=== PATIENT | male | born 2000 | race Caucasian/White ===

== ENCOUNTER 2025-03-09 21:39 | Emergency (ER) | payer MEDICAID ==
[~2025-03-09] VITALS: Ht 175.3 cm; Wt 75.0 kg
[2025-03-09 21:43] VITALS: O2SAT 98
[2025-03-09] MEDS: ACETAMINOPHEN 325MG TABLET PO SCH (22:00)
[2025-03-09] MEDS: LEVETIRACETAM 500MG PREMIX 100 ML IV ONE (22:17)
[2025-03-09] MEDS: SODIUM CHLORIDE 0.9% 1,000 ML IV ONE (22:17)
[2025-03-09 22:29] LABS: BASOPHILS % 0.5 % (0.0-2.0); EOSINOPHILS % 0.3 % (0.0-5.0); HEMATOCRIT. 40.1 % (42.0-52.0); HEMOGLOBIN. 13.5 g/dL (14.0-18.0); LYMPHOCYTES % 37.9 % (20.0-50.0); MEAN PLATELET VOLUME 7.7 fl (7.4-10.4); MONOCYTES % 10.1 % (2.0-8.0); NEUTROPHILS % 51.2 % (40.0-76.0); PLATELET 214 x1000/uL (130-400); RED BLOOD CELL COUNT 4.42 mill/uL (4.7-6.1); RED CELL DISTRIBUTION WIDTH 12.4 % (11.6-14.6)
[2025-03-09 22:44] LABS: CREATININE 0.9 mg/dL (0.6-1.3); UREA NITROGEN BLOOD 9 mg/dL (9-23)
[2025-03-09 23:45] VITALS: BP 144/67; PULSE 74; RESP 16; TEMP 36.8; O2SAT 100
== END 2025-03-09 23:53 | disposition home or self-care (01) ==
LOC: ER 21:39
DX: S00.81XA Abrasion of other part of head, initial encounter (principal); G40.909 Epilepsy, unspecified, not intractable, without status epilepticus; W18.30XA Fall on same level, unspecified, initial encounter; Y93.89 Activity, other specified; Y92.89 Other specified places as the place of occurrence of the external cause; Y99.8 Other external cause status
CPT/HCPCS: 80048; 80320; 82962; 85025; 36415; 96365; 99284; J1953; J7030; G0480